=== PATIENT | female | born 1965 | race African-American/Black ===

== ENCOUNTER 2023-10-13 15:13 | Inpatient (IN) | payer OTHER ==
[~2023-10-13] VITALS: Ht 167.6 cm; Wt 75.7 kg
[2023-10-13 15:16] VITALS: O2SAT 95
[2023-10-13] MEDS: DILTIAZEM HCL 5MG/ML 5ML VIAL IV ONE ×2 (15:40→16:50)
[2023-10-13] MEDS: ASPIRIN 81MG TABLET PO ONE (15:40)
[2023-10-13] MEDS ORDERED: DILTIAZEM HCL 125 MG in DEXT 5% WATER 100 ML IV ONE (16:00)
[2023-10-13] MEDS ORDERED: DILTIAZEM HCL 125 MG in DEXT 5% WATER 100 ML IV SCH (16:15)
[2023-10-13] MEDS: SODIUM CHLORIDE 0.9% 1,000 ML IV ONE ×2 (16:22→17:30)
[2023-10-13] MEDS: DIGOXIN 500MCG/2ML AMP IV ONE (16:51)
[2023-10-13 16:59] LABS: BASOPHILS % 0.5 % (0.0-2.0); EOSINOPHILS % 0.2 % (0.0-5.0); HEMATOCRIT. 23.2 % (36.0-48.0); HEMOGLOBIN. 7.3 g/dL (12.0-16.0); LYMPHOCYTES % 35.7 % (20.0-50.0); MEAN CORPUSCULAR HEMOGLOBIN 25.5 pg (28.0-32.0); MEAN CORPUSCULAR HGB CONC 31.4 g/dL (31.0-37.0); MEAN CORPUSCULAR VOLUME 81.2 fL (81.0-99.0); MEAN PLATELET VOLUME 6.9 fl (7.4-10.4); MONOCYTES % 12.1 % (2.0-8.0); NEUTROPHILS % 51.5 % (40.0-76.0); PLATELET 149 x1000/uL (130-400); RED BLOOD CELL COUNT 2.85 mill/uL (4.2-5.4); WHITE BLOOD COUNT 5.8 x1000/uL (4.5-11.0)
[2023-10-13 17:03] LABS: INR 1.4; PARTIAL THROMBOPLASTIN TIME 25.1 sec (23.4-31.0); PROTHROMBIN TIME 14.9 sec (9.6-11.0)
[2023-10-13 17:13] LABS: ALANINE AMINOTRANSFERASE 12 IU/L (10-49); ALBUMIN 3.4 g/dL (3.2-4.8); ASPARTATE AMINOTRANSFERASE 32 IU/L (<34); BILIRUBIN TOTAL 0.4 mg/dL (0.1-1.0); CALCIUM 7.2 mg/dL (8.7-10.4); CARBON DIOXIDE 16 mEq/L (21-32); CHLORIDE 99 mEq/L (98-107); CREATININE 1.3 mg/dL (0.6-1.0); GLUCOSE 292 mg/dL (70-105); LACTIC ACID 9.7 mmol/L (0.4-2.0); PROTEIN TOTAL 6.1 g/dL (6.0-8.3); SODIUM 133 mEq/L (136-145); THYROID STIMULATING HORMONE 1.12 uIU/mL (0.55-4.78); UREA NITROGEN BLOOD 13 mg/dL (9-23)
[2023-10-13 17:14] LABS: POTASSIUM 2.7 mEq/L (3.5-5.1)
[2023-10-13 17:15] LABS: TROPONIN I HIGH SENSITIVITY 210 ng/L (3.0-34)
[2023-10-13] MEDS: POTASSIUM CHLORIDE 20MEQ/PACKET PO NR (18:41)
[2023-10-13] MEDS: KCL 20MEQ/100ML PREMIX 100 ML IV SCH (18:47)
[2023-10-13 21:47] LABS: TROPONIN I HIGH SENSITIVITY 1248 ng/L (3.0-34)
[2023-10-13] MEDS ORDERED: MORPHINE SULFATE 2 MG/ML CPJ (NOT FOR IM USE) IV SCH (22:15)
[2023-10-13] MEDS ORDERED: AMIODARONE HCL 900 MG in DEXT 5% WATER 500 ML IV SCH (22:15)
[2023-10-13] MEDS: APIXABAN 5 MG TABLET PO SCH (22:30)
[2023-10-13 22:51] LABS: BG BASE EXCESS -26.4 mmol/L (-2.0-2.0); BG CARBOXYHEMOGLOBIN 0.3 % (0.5-1.5); BG DEOXYHEMOGLOBIN 1.6 % (0.0-5.0); BG FRACTION INSPIRED OXYGEN 100; BG HCO3 ACT 4.6 mmol/L (22.0-26.0); BG METHEMOGLOBIN 0.5 % (0.0-1.5); BG OXYGEN SATURATION 98.4 % (92.0-98.5); BG OXYHEMOGLOBIN 97.6 % (94.0-97.0); BG PCO2 23.3 mmHg (35.0-45.0); BG PH 6.915 (7.350-7.450); BG PO2 179.6 mmHg (75.0-100.0); BG TOTAL HEMOGLOBIN 9.4 g/dL (12.0-18.0); BG VENT MODE MASK - NRB
[2023-10-13 22:57] VITALS: PULSE 86; RESP 30
[2023-10-13] MEDS ORDERED: PROPOFOL 10 MG/ML 100 ML IV PRN (23:30)
[2023-10-13] MEDS ORDERED: PROPOFOL 10MG/ML 100ML 100 ML IV SCH (23:30)
[2023-10-13] MEDS ORDERED: EPINEPHRINE 5 MG in SODIUM CHLORIDE 0.9% 245 ML IV PRN (23:30)
[2023-10-13] MEDS: AMIODARONE 150MG/100ML PREMIX 100 ML IV ONE (23:56)
[2023-10-13] MEDS: EPINEPHRINE 5 MG in SODIUM CHLORIDE 0.9% 245 ML IV PRN (23:57)
[2023-10-13] MEDS: NOREPINEPHRINE 8MG/250ML PMX 250 ML IV PRN (23:57)
[2023-10-14] VITALS (52 sets, daily range): BP systolic 40–239; BP diastolic 11–181; PULSE 32–141; RESP 10–80; TEMP 96–97.4
[2023-10-14] MEDS ORDERED: EPINEPHRINE 10 MG in SODIUM CHLORIDE 0.9% 240 ML IV PRN ×2 (00:30→03:15)
[2023-10-14] MEDS ORDERED: HEPARIN BOLUS PRN aPTT 30-44 IV ×2 (00:45→07:00)
[2023-10-14] MEDS ORDERED: HEPARIN BOLUS PRN aPTT <30 IV ×2 (00:45→07:00)
[2023-10-14] MEDS: HEPARIN 60 UNITS/KG BOLUS IV SCH (00:47)
[2023-10-14] MEDS: HEPARIN 25,000 UNITS PREMIX 250 ML IV SCH (01:09)
[2023-10-14 02:42] LABS: HEPATITIS A AB IGM NEGATIVE (Negative); HEPATITIS B CORE AB IGM NEGATIVE (Negative); HEPATITIS B SURFACE ANTIGEN NEGATIVE (Negative); HEPATITIS C AB NON REACTIVE (Neg) (Negative)
[2023-10-14] MEDS ORDERED: PHENYLEPHRINE 100 MG in DEXT 5% WATER 240 ML IV PRN (03:00)
[2023-10-14] MEDS ORDERED: NOREPINEPHRINE 32 MG in DEXT 5% WATER 218 ML IV PRN (03:00)
[2023-10-14 03:22] LABS: BG BASE EXCESS -27.5 mmol/L (-2.0-2.0); BG CARBOXYHEMOGLOBIN 0.4 % (0.5-1.5); BG DEOXYHEMOGLOBIN 1.5 % (0.0-5.0); BG FRACTION INSPIRED OXYGEN 100; BG HCO3 ACT 5.3 mmol/L (22.0-26.0); BG OXYGEN SATURATION 98.5 % (92.0-98.5); BG OXYHEMOGLOBIN 97.1 % (94.0-97.0); BG PCO2 42.3 mmHg (35.0-45.0); BG PH 6.718 (7.350-7.450); BG PO2 224.3 mmHg (75.0-100.0); BG SAMPLE SITE RIGHT BRACHIAL; BG TOTAL HEMOGLOBIN 4.9 g/dL (12.0-18.0); BG VENT MODE VENT - AC
[2023-10-14] MEDS: EPINEPHRINE 10 MG in SODIUM CHLORIDE 0.9% 240 ML IV PRN (03:36)
[2023-10-14] MEDS: NOREPINEPHRINE 32 MG in DEXT 5% WATER 218 ML IV PRN (03:37)
[2023-10-14] MEDS: PHENYLEPHRINE 100 MG in DEXT 5% WATER 240 ML IV PRN (03:37)
[2023-10-14] MEDS: VASOPRESSIN 20 UNITS in SODIUM CHLORIDE 0.9% 100 ML IV PRN (03:38)
[2023-10-14] MEDS ORDERED: SODIUM BICARBONATE 150 MEQ in DEXTROSE 5% WATER 850 ML IV SCH (04:00)
[2023-10-14] MEDS: SODIUM BICARBONATE 8.4% 1 MEQ/ML 50ML SYR IV NR ×5 (04:11→15:45)
[2023-10-14] MEDS: SODIUM BICARBONATE 150 MEQ in DEXTROSE 5% WATER 1,000 ML IV SCH (05:03)
[2023-10-14 05:42] LABS: MEAN CORPUSCULAR HEMOGLOBIN 26.6 pg (28.0-32.0); MEAN CORPUSCULAR HGB CONC 28.6 g/dL (31.0-37.0); MEAN CORPUSCULAR VOLUME 93.2 fL (81.0-99.0); MEAN PLATELET VOLUME 7.4 fl (7.4-10.4); PLATELET 112 x1000/uL (130-400); RED BLOOD CELL COUNT 1.72 mill/uL (4.2-5.4); RED CELL DISTRIBUTION WIDTH 19.6 % (11.6-14.6); WHITE BLOOD COUNT 8.6 x1000/uL (4.5-11.0)
[2023-10-14 05:53] LABS: CALCIUM 6.5 mg/dL (8.7-10.4); CHLORIDE 107 mEq/L (98-107); GLUCOSE 151 mg/dL (70-105); POTASSIUM 5.1 mEq/L (3.5-5.1); UREA NITROGEN BLOOD 19 mg/dL (9-23)
[2023-10-14 06:23] LABS: BG CARBOXYHEMOGLOBIN 0.1 % (0.5-1.5); BG DEOXYHEMOGLOBIN 1.3 % (0.0-5.0); BG FRACTION INSPIRED OXYGEN 100; BG HCO3 ACT 5.3 mmol/L (22.0-26.0); BG METHEMOGLOBIN 0.7 % (0.0-1.5); BG OXYGEN SATURATION 98.7 % (92.0-98.5); BG OXYHEMOGLOBIN 97.9 % (94.0-97.0); BG PCO2 31.2 mmHg (35.0-45.0); BG PO2 302.1 mmHg (75.0-100.0); BG SAMPLE SITE RIGHT BRACHIAL; BG VENT MODE VENT - AC
[2023-10-14 06:46] LABS: CREATININE 2.3 mg/dL (0.6-1.0); SODIUM 148 mEq/L (136-145)
[2023-10-14 06:48] LABS: CARBON DIOXIDE < 10 mEq/L (21-32)
[2023-10-14 06:49] LABS: DIFFERENTIAL COMMENT 1
[2023-10-14 06:52] LABS: HEMOGLOBIN. 4.6 g/dL (12.0-16.0)
[2023-10-14 09:16] LABS: BG FRACTION INSPIRED OXYGEN 60; BG HCO3 ACT 8.3 mmol/L (22.0-26.0); BG PCO2 30.1 mmHg (35.0-45.0); BG PH 7.059 (7.350-7.450); BG SAMPLE SITE ALINE; BG TOTAL HEMOGLOBIN < 4.5 g/dL (12.0-18.0); BG VENT MODE VENT - AC
[2023-10-14 10:09] LABS: CREATINE KINASE 1267 IU/L (34-145)
[2023-10-14] MEDS: PANTOPRAZOLE SODIUM 40 MG/VIAL IV SCH (12:14)
[2023-10-14] MEDS: PROTAMINE SULFATE 10MG/ML VIAL 25ML IV NR (12:40)
[2023-10-14] MEDS: VANCOMYCIN 750MG/150ML IV SCH (12:41)
[2023-10-14] MEDS ORDERED: PIPERACILLIN/TAZO 3.375G/50ML 50 ML IV SCH (14:00)
[2023-10-14] MEDS ORDERED: HYDROCORTISONE SOD SUCCINATE 100 MG/2 ML VIAL IV SCH (14:00)
[2023-10-14 14:09] LABS: CLARITY URINE CLOUDY (CLEAR); COLOR URINE YELLOW (YELLOW); GLUCOSE URINE 1+ (NEGATIVE); KETONES URINE NEGATIVE (NEGATIVE); LEUKOCYTE ESTERASE URINE NEGATIVE (NEGATIVE); NITRITE URINE NEGATIVE (NEGATIVE); OCCULT BLOOD URINE NEGATIVE (NEGATIVE); PROTEIN URINE 2+ (NEGATIVE); SPECIFIC GRAVITY URINE 1.015 (1.005-1.030)
[2023-10-14 14:24] LABS: BACTERIA URINE 1+; RBC URINE 0-2 /hpf (0-2); SQUAMOUS EPITHELIAL CELL URINE 2+ /lpf (RARE/1+); YEAST URINE NONE SEEN
[2023-10-14] MEDS ORDERED: VANCOMYCIN 750MG/150ML IV NR (15:00)
[2023-10-14] MEDS ORDERED: DOPAMINE 800MG PREMIX (DOUBLE) 250 ML IV PRN (15:00)
[2023-10-14 15:04] LABS: HEMOGLOBIN 2.6 g/dL (12.0-16.0)
[2023-10-14 15:05] LABS: HEMATOCRIT 8.8 % (36.0-48.0)
[2023-10-14] MEDS: LACTATED RINGERS 1,000 ML IV SCH (15:44)
[2023-10-14 15:47] LABS: IRON 68 ug/dL (50-170); TOTAL IRON BINDING CAPACITY 112 ug/dl (250-425)
[2023-10-14 15:59] LABS: PROTHROMBIN TIME > 100.0 sec (9.6-11.0)
[2023-10-14 16:00] LABS: D-DIMER > 35.20 mg/L FEU (<0.50)
[2023-10-14 16:03] LABS: INR > 10.0
[2023-10-14 16:04] LABS: PARTIAL THROMBOPLASTIN TIME > 200.0 sec (23.4-31.0)
[2023-10-14 16:21] LABS: FOLIC ACID (FOLATE) SERUM > 20.00 ng/mL (>5.38)
[2023-10-14 16:23] LABS: VITAMIN B12 SERUM > 2000 pg/mL (211-911)
[2023-10-14 16:26] LABS: ANISOCYTOSIS 1+; NUCLEATED RED BLOOD CELLS 2 /100 WBC; PLATELET ESTIMATE DECREASED
== END 2023-10-14 18:00 | DRG 871 ==
LOC: ER 15:13 → CVICU 17:09 → EDBEDREQTM 17:12 → EDBEDREQ 17:12
PROVIDERS: ADMIT Internal Medicine; ATTEND Internal Medicine
PROC: 5A1935Z Respiratory Ventilation, Less than 24 Consecutive Hours (ICD-10-PCS; principal; 2023-10-13)
PROC: 0BH18EZ Insertion of Endotracheal Airway into Trachea, Via Natural or Artificial Opening Endoscopic (ICD-10-PCS; 2023-10-13)
PROC: 5A12012 Performance of Cardiac Output, Single, Manual (ICD-10-PCS; 2023-10-13)
PROC: 06HY33Z Insertion of Infusion Device into Lower Vein, Percutaneous Approach (ICD-10-PCS; 2023-10-13)
PROC: B54CZZA Ultrasonography of Left Lower Extremity Veins, Guidance (ICD-10-PCS; 2023-10-13)
PROC: 30233N1 Transfusion of Nonautologous Red Blood Cells into Peripheral Vein, Percutaneous Approach (ICD-10-PCS; 2023-10-14)
PROC: 30233K1 Transfusion of Nonautologous Frozen Plasma into Peripheral Vein, Percutaneous Approach (ICD-10-PCS; 2023-10-14)
PROC: 5A12012 Performance of Cardiac Output, Single, Manual (ICD-10-PCS; 2023-10-14)
DX: A41.9 Sepsis, unspecified organism (principal); J96.01 Acute respiratory failure with hypoxia; R65.21 Severe sepsis with septic shock; G93.40 Encephalopathy, unspecified; I46.9 Cardiac arrest, cause unspecified; D50.0 Iron deficiency anemia secondary to blood loss (chronic); C54.1 Malignant neoplasm of endometrium; S30.1XXA Contusion of abdominal wall, initial encounter; I48.91 Unspecified atrial fibrillation; E87.6 Hypokalemia; Z96.659 Presence of unspecified artificial knee joint; Z85.42 Personal history of malignant neoplasm of other parts of uterus; X58.XXXA Exposure to other specified factors, initial encounter; Y93.89 Activity, other specified; Y92.89 Other specified places as the place of occurrence of the external cause
CPT/HCPCS: 31500; 36415; 36600; 71045; 80048; 80053; 81003; 82375; 82550; 82607; 82746; 82805; 82962; 83540; 83550; 83605; 83735; 83880; 84145; 84443; 84484; 85014; 85018; 85025; 85379; 86705; 86709; 86850; 86900; 86920; 86927; 87340; 93005; 93306; 93970; 94003; 99291; C9113; J0282; J1160; J1265; J1644; J2370; J2704; J2720; J3370; J3480; J3490; J7030; J7050; J7060; J7070; P9016; P9017